=== PATIENT | male | born 1970 | race Caucasian/White ===

== ENCOUNTER 2021-09-17 08:34 | Emergency (ER) | payer OTHER ==
[~2021-09-17] VITALS: Ht 177.8 cm; Wt 81.6 kg
[2021-09-17 08:35] VITALS: BP_SYST 137
--- NOTE | 2021-09-17 08:35 | NUR ---
BROUGHT BACK TO BED #8 AND TRIAGED. REPORT GIVEN TO HARJEET
--- NOTE | 2021-09-17 08:40 | NUR ---
PT BROUGHT SELF TO ER C/O LOWER BACK PAIN AND LEFT KNEE PAIN SINCE YESTERDAY. STATES WHILE AT WORK HE FELL FROM 2FT OFF OF A SCISSOR LIFT. PT DENIES HITTING HEAD OR LOSS OF CONSCIOUSNESS. DENIES HEAD OR NECK PAIN. PT ARRIVES AMBULATORY WITH STEADY GAIT, NO APPARANT DISTRESS, V/S STABLE, AAOX4.
--- NOTE | 2021-09-17 08:42 | NUR ---
PT NOW STATES HE DID HIT HIS HEAD WHEN HE FELL DOWN BUT WAS WEARING A HELMIT. PT APPEARS ANXIOUS AND IS TALKING FAST, HYPERVERBAL.
--- NOTE | 2021-09-17 08:45 | NUR ---
ER DR. CARPENTER AT THE BEDSIDE EXAMINING PT
--- NOTE | 2021-09-17 08:55 | NUR ---
Patient transported to radiology via WC, accompanied by STAFF. Addendum: 09/17/21 at 0910 by [email or web address] Patient transported to radiology via AMBULATION, accompanied by STAFF.
[2021-09-17] MEDS ORDERED: IBUPROFEN 600 MG TABLET PO ONE (09:00)
[2021-09-17] MEDS ORDERED: ACETAMINOPHEN 325 MG TABLET PO ONE (09:00)
--- NOTE | 2021-09-17 09:10 | NUR ---
Returned from radiology, back to [facility].
--- NOTE | 2021-09-17 09:12 | NUR ---
PT REQUESTING TO HAVE A DRUG TEST MADE AWARE
--- NOTE | 2021-09-17 09:14 | NUR ---
PT AMBULATES TO BATHROOM FOR URINE SAMPLE
[2021-09-17] MEDS ORDERED: ACET325T53 PO (09:24)
[2021-09-17] MEDS ORDERED: IBUP-1968 PO (09:25)
[2021-09-17 09:33] VITALS: BP_SYST 137
--- NOTE | 2021-09-17 09:34 | NUR ---
Patient given written and verbal discharge instructions and verbalizes understanding. ER MD discussed with patient the results and treatment provided. Patient in stable condition. ID arm band removed. Rx of IBUPROFEN AND TYLENOL given. Patient educated on pain management and to follow up with PMD. Pain Scale 4/10. Opportunity for questions provided and answered. Medication side effect fact sheet provided.
[2021-09-17 09:59] LABS: BARBITURATE, URINE NEGATIVE (NEG <=200); BENZODIAZEPINE, URINE NEGATIVE (NEG <=150); CANNABINOID, URINE NEGATIVE (NEG <=50); COCAINE, URINE NEGATIVE (NEG <=150); METHAMPHETAMINES SCREEN,URINE NEGATIVE (NEG <=500); OPIATE, URINE NEGATIVE (NEG <=100); PHENCYCLIDINE SCREEN,URINE NEGATIVE (NEG <=25); UR TRICYCLIC ANTIDEPRESSANTS NEGATIVE (NEG <=300); URINE AMPHETAMINE NEGATIVE (NEG <=500); URINE METHADONE NEGATIVE (NEG <=200); URINE OXYCODONE SCREEN NEGATIVE (NEG <=100); URINE PROPOXYPHENE SCREEN NEGATIVE (NEG <=300)
[2021-09-17] MEDS ORDERED: TRAM50TA PO (21:40)
== END 2021-09-17 09:34 | disposition home or self-care (01) ==
LOC: SED 08:34
DX: M54.50 Low back pain, unspecified (principal); M25.562 Pain in left knee; Z79.899 Other long term (current) drug therapy; W18.39XA Other fall on same level, initial encounter; Y93.89 Activity, other specified; Y92.89 Other specified places as the place of occurrence of the external cause; Y99.0 Civilian activity done for income or pay
CPT/HCPCS: 72110; 73564; 80307; 99284

== ENCOUNTER 2021-09-17 18:54 | Emergency (ER) | payer OTHER ==
[~2021-09-17] VITALS: Ht 177.8 cm; Wt 81.6 kg
[~2021-09-17 18:54] MED LIST: ACET325T53 PO; IBUP-1968 PO
[2021-09-17 19:26] VITALS: BP_SYST 135
--- NOTE | 2021-09-17 21:35 | NUR ---
Patient to ER bed to gown for evaluation. Side rails up.
--- NOTE | 2021-09-17 21:36 | NUR ---
Dr. Siu bedside for pt eval
--- NOTE | 2021-09-17 21:37 | NUR ---
Pt BIB family to ED C/O S/P fall while at work yesterday. The patient states he was on a scissor left that was approximately 5 feet tall when he fell backwards and hit the ground. He is now experiencing severe headache, neck pain, back pain, leg pain that radiates all the way down to his foot on the left side. His left knee also is hurting. The patient has pain to the back of his head and the majority of his pain is left-sided. He denies any abdominal pain or chest pain. The patient describes his pain as moderate to severe, constant with radiation down his left leg. There are no alleviating factors and the patient's symptoms are made worse by movement
[2021-09-17] MEDS ORDERED: TRAM50TA PO (21:40)
[2021-09-17 22:00] VITALS: BP_SYST 135
--- NOTE | 2021-09-17 22:00 | NUR ---
Patient given written and verbal discharge instructions and verbalizes understanding. ER MD discussed with patient the results and treatment provided. Patient in stable condition. ID arm band removed. Rx of Tramadol given. Patient educated on pain management and to follow up with PMD. Pain Scale 0/10 Opportunity for questions provided and answered. Medication side effect fact sheet provided.
== END 2021-09-17 22:00 | disposition home or self-care (01) ==
LOC: SED 18:54
DX: S09.90XA Unspecified injury of head, initial encounter (principal); M25.562 Pain in left knee; Z79.899 Other long term (current) drug therapy; W18.39XA Other fall on same level, initial encounter; Y93.89 Activity, other specified; Y92.89 Other specified places as the place of occurrence of the external cause; Y99.0 Civilian activity done for income or pay
CPT/HCPCS: 70450-TC; 72125-TC; 72192-TC; 73590-TC; 76376; 99284

== ENCOUNTER 2021-09-22 14:57 | Emergency (ER) | payer OTHER ==
[~2021-09-22] VITALS: Ht 177.8 cm; Wt 95.3 kg
[~2021-09-22 14:57] MED LIST changes: +TRAM50TA PO
[2021-09-22 15:30] VITALS: BP_SYST 142
--- NOTE | 2021-09-22 15:30 | NUR ---
Patient to ER bed 8 to gown for evaluation. Side rails up. Report given to KAILEY YODER.
--- NOTE | 2021-09-22 15:35 | NUR ---
DR BROWN AT BEDSIDE
[2021-09-22] MEDS ORDERED: IBUP-1971 PO (15:45)
[2021-09-22] MEDS ORDERED: HYDR-3917 PO (15:45)
[2021-09-22 15:57] VITALS: BP_SYST 137
--- NOTE | 2021-09-22 15:58 | NUR ---
Patient given written and verbal discharge instructions and verbalizes understanding. ARIANNE BROWN MD discussed with patient the results and treatment provided. Patient in stable condition. ID arm band removed. Rx of HYDROCODONE, MOTRIN given. Patient educated on pain management and to follow up with PMD. Pain Scale 5. Opportunity for questions provided and answered. Medication side effect fact sheet provided.
== END 2021-09-22 15:56 | disposition home or self-care (01) ==
LOC: SED 14:57
DX: S83.92XA Sprain of unspecified site of left knee, initial encounter (principal); Z79.899 Other long term (current) drug therapy; W17.89XA Other fall from one level to another, initial encounter; Y93.89 Activity, other specified; Y92.89 Other specified places as the place of occurrence of the external cause; Y99.0 Civilian activity done for income or pay
CPT/HCPCS: 99283